=== PATIENT | female | born 1960 | race Two or more races ===

== ENCOUNTER 2018-11-18 10:31 | Emergency (ER) | payer OTHER ==
[2018-11-18 10:51] VITALS: TEMP 97.9
[2018-11-18 11:34] LABS: BASOPHILS % (AUTO) 0 % (0-3); EOSINOPHILS % (AUTO) 2 % (0-9); HEMATOCRIT 38 % (35-47); HEMOGLOBIN 12.2 gm/dl (12.0-15.5); LYMPHOCYTES % (AUTO) 13.2 % (10-50); MEAN CORPUSCULAR HEMOGLOBIN 27.3 pg (27.0-32.0); MEAN CORPUSCULAR HGB CONC 31.8 gm/dl (32.0-36.0); MEAN CORPUSCULAR VOLUME 86 fL (81-99); MONOCYTES % (AUTO) 8.3 % (0-12); NEUTROPHILS % (AUTO) 75.9 % (37-80)
[2018-11-18 11:44] LABS: ALBUMIN 3.6 gm/dl (3.4-5.0); BILIRUBIN,TOTAL 0.5 mg/dl (0.2-1.0); CALCIUM 9.6 mg/dl (8.5-10.1); CARBON DIOXIDE 24.7 mEq/L (21-32); CREATININE 0.79 mg/dl (0.60-1.00); TOTAL PROTEIN 7.7 gm/dl (6.4-8.2)
[2018-11-18 13:41] VITALS: RESP 18
[2018-11-18 14:05] VITALS: BP 133/54; PULSE 64; O2SAT 100
== END 2018-11-18 14:20 | disposition other institution (70) | DRG 69 ==
LOC: ED 10:31
DX: G45.9 Transient cerebral ischemic attack, unspecified (principal); R29.810 Facial weakness; R41.0 Disorientation, unspecified; W18.30XA Fall on same level, unspecified, initial encounter; R40.2412 Glasgow coma scale score 13-15, at arrival to emergency department; R29.701 NIHSS score 1
CPT/HCPCS: 36415; 70450; 80053; 85025; 85610; 99284; 99285